=== PATIENT | female | born 1995 | race African-American/Black ===

== ENCOUNTER 2016-06-03 23:27 | Emergency (ER) | payer BC, OTHER ==
[~2016-06-03] VITALS: Ht 182.1 cm; Wt 94.9 kg
[~2016-06-03 23:27] MED LIST: METH10TA6 PO
[2016-06-03 23:32] VITALS: Ht 182.1 cm; Wt 94.9 kg
[2016-06-04 00:05] LABS: HEMATOCRIT 35.6 % (37-47); MEAN CELL VOLUME 83.4 fL (80-100); MEAN CORPUSCULAR HGB CONC 34.8 g/dl (32-36); MEAN PLATELET VOLUME 11.6 fL (7.4-10.4); PLATELET COUNT 269 K/uL (130-400); RED BLOOD COUNT 4.27 M/uL (4.2-5.4); WHITE BLOOD COUNT 2.97 K/uL (4.8-10.8)
[2016-06-04 00:21] LABS: BLOOD UREA NITROGEN 9 mg/dl (7-18); BUN/CREATININE RATIO 15.7 (10-20); CALCIUM 8.8 mg/dl (8.5-10.1); CARBON DIOXIDE 27 mmol/L (21-32); CHLORIDE 107 mmol/L (98-107); CREATININE 0.56 mg/dl (0.60-1.20); GLUCOSE 83 mg/dl (70-99); POTASSIUM 3.8 mmol/L (3.5-5.1); SODIUM 139 mmol/L (136-145)
[2016-06-04 00:31] LABS: THYROID STIMULATING HORMONE < 0.005 uIu/ml (0.300-4.500)
--- NOTE | 2016-06-04 01:10 | EMERGENCY ROOM VISIT NOTE ---
History Report prepared by Everette: Zheng Knott Under the Supervision of: Dr. Santos High D.O. First contact with patient: 23:37 Chief Complaint: THROAT PAIN/INJURY Stated Complaint: THYROID PROBLEMS,SWELLING,HARD TO SWALLOW History of Present Illness The patient is a 20 year old female who presents to the Emergency Room with complaints of persistent throat pain beginning a few days ago. She notes she has a diagnosis of hyperthyroidism since about 2 years ago, and takes methimazole for her symptoms which she was prescribed by [facility]. She admits to being off the medication for about month while switching insurance and providers. She reports that her throat is swollen unevenly, and that it hurts to touch her throat and swallow. The patient also complains of palpitations, chest tightness, and shortness of breath, especially at night. She adds that this has caused increased anxiety lately. She denies having any swelling of her legs. Source of History: patient Onset: a few days ago Position: throat Quality: other (throat pain) Timing: other (persistent) Modifying Factors (Worsening): other (swallowing; touching) Associated Symptoms: + SOB, + chest pain Note: The patient denies having any swelling of her legs. Review of Systems See HPI for pertinent positives & negatives. A total of 10 systems reviewed and were otherwise negative. Past Medical & Surgical Medical Problems: (1) History of hyperthyroidism Family History No pertinent family history stated. Social History Smoking Status: Never Smoker Occupation Status: [employer] student Current/Historical Medications Scheduled Methimazole (Methimazole), 30 MG PO DAILY Methimazole (Methimazole), 10 MG PO TID Allergies Coded Allergies: No Known Allergies (Unverified , 09/30/15) Physical Exam Vital Signs Date Time Temp Pulse Resp B/P Pulse Ox O2 Delivery O2 Flow Rate FiO2 06/03/16 23:32 36.9 88 22 148/89 99 Room Air Physical Exam CONSTITUTIONAL/VITAL SIGNS: Reviewed / noted above. GENERAL: Non-toxic in appearance. INTEGUMENTARY: Warm, dry, and [place]. HEAD: Normocephalic. EYES: without scleral icterus or trauma. ENT/OROPHARYNX: clear and moist. LYMPHADENOPATHY/NECK: Enlarged thyroid palpable on exam. RESPIRATORY: Lungs clear and equal. CARDIOVASCULAR: Regular rate and rhythm. GI/ABDOMEN: Soft and nontender. No organomegaly or pulsatile mass. No rebound or guarding. Normal bowel sounds. EXTREMITIES: Warm and well perfused. BACK: No CVA tenderness. NEUROLOGICAL: Intact without focal deficits. PSYCHIATRIC: normal affect. MUSCULOSKELETAL: Normally developed with good muscle tone. Medical Decision & Procedures ER Provider Diagnostic Interpretation: Radiology results as stated below per my review and radiologist interpretation: CHEST X-RAY: Negative for acute disease. No pneumothorax. No pneumonia. CT NECK: Thyroid is diffusely heterogeneous and enlarged, without dominant lesion ( enlargement of lobes is similar with greater superior extent on the right and inferior extent on left). Correlate with thyroid function tests. Correlation with thyroid ultrasound could also be considered as clinically warranted. Trachea is not narrowed. No evidence of lymphadenopathy. Left piriform sinus is nonaerated, nonspecific. Radiologist: Mike Shabazz M.D. Laboratory Results 06/03/16 23:53 06/03/16 23:53 Test 06/03/16 23:53 Red Blood Count 4.27 M/uL (4.2-5.4) Mean Corpuscular Volume 83.4 fL (80-100) Mean Corpuscular Hemoglobin 29.0 pg (25-34) Mean Corpuscular Hemoglobin Concent 34.8 g/dl (32-36) RDW Standard Deviation 37.1 fL (36.4-46.3) RDW Coefficient of Variation 12.2 % (11.5-14.5) Mean Platelet Volume 11.6 fL (7.4-10.4) Anion Gap 5.0 mmol/L (3-11) Est Creatinine Clear Calc Drug Dose 204.2 ml/min Estimated GFR () > 150.0 Estimated GFR (Non- 133.3 BUN/Creatinine Ratio 15.7 (10-20) Calcium Level 8.8 mg/dl (8.5-10.1) Thyroid Stimulating Hormone (TSH) < 0.005 uIu/ml (0.300-4.500) Free Thyroxine 2.45 ng/dl (0.80-1.60) Free Triiodothyronine 8.67 pg/ml (2.30-4.20) Laboratory results as stated above per my review. ED Course 2338: Previous medical records were reviewed. The patient was evaluated in room A4B. A complete history and physical examination was performed. 0110: On reevaluation, the patient is doing well. I discussed the results and findings with the patient. She verbalized agreement of the treatment plan. The patient was discharged home. Medical Decision Differential includes acute coronary syndrome, myocardial infarction, CVA, TIA, anemia, infection, pneumonia, UTI, pyelonephritis, poor nutrition, dehydration, electrolyte disturbance,hypoglycemia. This is a 20-year-old female who presents to the ED with a chief complaint of discomfort in her thyroid as well as some shortness of breath lately and palpitations. The patient has been diagnosed with hyperthyroidism since the summer 2014. She has been on methimazole but then went off of it and recently states started at [facility]. She came in with symptoms of some anxiety as well as some shortness of breath. She is in no acute distress on exam. Her vital signs are normal. Her exam was normal with exception of an enlarged thyroid on exam. CBC and PRP are unremarkable. TSH is less than 0.005. Free T4 is 2.45 and free T3 is 8.67. Chest x-ray was negative for acute disease. A CT scan of the soft tissue neck reveals an enlarged thyroid but otherwise no acute process. The patient was told the results of the tests. She is felt to be stable for discharge and outpatient follow-up. She will continue with her hyperthyroid medications. Impression Primary Impression: Hyperthyroidism Scribe Attestation The scribe's documentation has been prepared under my direction and personally reviewed by me in its entirety. I confirm that the note above accurately reflects all work, treatment, procedures, and medical decision making performed by me. Departure Information Dispostion Home / Self-Care Referrals No Doctor, Assigned (PCP) Patient Instructions Hyperthyroidism [place], My [facility] Additional Instructions Follow-up with your doctors for further evaluation of your symptoms.
[2016-06-04 01:18] VITALS: BP 143/95; PULSE 98; TEMP 36.9; O2SAT 100
--- NOTE | 2016-06-04 06:56 | DIAGNOSTIC IMAGING REPORT ---
CT SOFT TISSUE NECK WITHOUT CT DOSE: 626.31 mGy.cm CLINICAL HISTORY: Neck mass. Possible thyromegaly. TECHNIQUE: Helical images were acquired without intravenous contrast. COMPARISON STUDY: None. FINDINGS: No orbital masses are visualized. No salivary masses are visualized on this noncontrast study. No mucosal space masses are visualized in this noncontrast study. There is piriform sinus asymmetry with lack of aeration the left piriform sinus. This finding is of questionable clinical significance given the age of the patient. There is no evidence of pathologic adenopathy on this noncontrast study. The thyroid is enlarged and heterogeneous in appearance. The right lobe of the thyroid measures 21 x 29 x 67 mm. The left lobe of thyroid measures 25 x 36 x 63 mm. Visualized portions lung apices are unremarkable. IMPRESSION: 1. Thyromegaly. 2. Nonspecific piriform sinus asymmetry Electronically signed by: Carlos Parish M.D. 06/04/2016 6:55 AM Dictated Date/Time: 06/04/2016 6:51 AM
--- NOTE | 2016-06-04 07:42 | DIAGNOSTIC IMAGING REPORT ---
CHEST ONE VIEW PORTABLE HISTORY: Short of breath. COMPARISON: Chest 09/30/2015. FINDINGS: Cardiac silhouette is mildly enlarged for age. The lungs are clear. No pleural effusions. No pneumothorax. IMPRESSION: Mild enlargement of the cardiac silhouette for age. Recommend nonemergent echocardiogram for further evaluation. Electronically signed by: Jayjay Jon M.D. 06/04/2016 7:41 AM Dictated Date/Time: 06/04/2016 7:39 AM
== END 2016-06-04 01:18 | disposition home or self-care (01) ==
LOC: C.EDB 23:28 → C.EDA 06-04 01:18
DX: E05.90 Thyrotoxicosis, unspecified without thyrotoxic crisis or storm (principal)